=== PATIENT | female | born 1970 ===

== ENCOUNTER 2018-10-13 07:07 | Day surgery (SDC) | payer BC ==
[2018-10-13] MEDS ORDERED: Lactated Ringer's 500 ML IV ONE (07:36)
[2018-10-13 07:40] VITALS: BMI 26.4
[2018-10-13] MEDS ORDERED: Propofol 10 mg/ml Inj (20 ML) ONE (08:35)
[2018-10-13 09:21] VITALS: RESP 18; O2SAT 100
[2018-10-13 09:50] VITALS: BP 123/68; PULSE 60; TEMP 96.8
== END 2018-10-13 10:21 | disposition home or self-care (01) ==
LOC: H.ENDO 07:07
PROVIDERS: ATTEND Internal Medicine Gastroenterology
DX: Z12.11 Encounter for screening for malignant neoplasm of colon (principal); I10 Essential (primary) hypertension; K64.8 Other hemorrhoids
CPT/HCPCS: 45378; J2001; J2704; J7120